=== PATIENT | female | born 1980 | race Caucasian/White ===

== ENCOUNTER → 2019-10-03 09:07 | Outpatient (CLI) | payer OTHER, SELFPAY ==
--- NOTE | 2019-10-03 | DI.MG.S_ITS ---
BILATERAL DIGITAL SCREENING MAMMOGRAM 3D/2D WITH CAD: 10/03/2019 CLINICAL: Baseline exam. Routine screening. Family history of breast cancer. No prior exams were available for comparison. The tissue of both breasts is extremely dense, which lowers the sensitivity of mammography. Current study was also evaluated with a Computer Aided Detection (CAD) system. There is an oval low density mass with an obscured and circumscribed margin in the right breast at 10 o'clock posterior depth. There is an oval high density asymmetry with an indistinct margin in the left breast middle depth superior region seen on the mediolateral oblique view only. No other significant masses or calcifications are seen in either breast. IMPRESSION: INCOMPLETE: NEEDS ADDITIONAL IMAGING EVALUATION The oval low density mass in the right breast at 10 o'clock posterior depth is indeterminate. An ultrasound is recommended. The oval high density asymmetry in the left breast middle depth superior region seen on the mediolateral oblique view only is indeterminate. Mediolateral and spot compression views as well as additional views with possible ultrasound are recommended. This exam was interpreted at Station ID: [id number]. NOTE: For mammograms, a report in lay terms will be sent to the patient. Approximately 15% of breast malignancies will not be visualized mammographically. In the management of a palpable breast mass, a negative mammogram must not discourage biopsy of a clinically suspicious lesion. Electronically Signed By: Amrik mcqueen/henry:10/05/2019 08:56:01 letter sent: Additional Imaging Needed ACR BI-RADS Category 0: Incomplete 3340F
== END ==
PROVIDERS: Family Provider Family Medicine; PCP Family Medicine; Referring Provider Family Medicine; Visit Provider Family Medicine
DX: Z12.31 Encounter for screening mammogram for malignant neoplasm of breast (principal); Z80.3 Family history of malignant neoplasm of breast
CPT/HCPCS: 77063; 77067

== ENCOUNTER → 2019-10-19 09:40 | Outpatient (CLI) | payer OTHER, SELFPAY ==
--- NOTE | 2019-10-19 | DI.US.S_ITS ---
ULTRASOUND OF RIGHT BREAST AND AXILLA: 10/19/2019 CLINICAL: Patient returns today to evaluate a focal asymmetry in the right breast. Comparison is made to exams dated: 10/19/2019 mammogram and 10/03/2019 mammogram - [facility]. Color flow and real-time ultrasound of the right breast axilla were performed. Graff scale images of the real-time examination were reviewed. There is a benign 0.5 cm x 0.5 cm x 0.4 cm oval normal lymph node in the right breast at 11 o'clock posterior depth 7 cm from the nipple. This oval normal lymph node is hypoechoic with fatty hilum. This correlates with mammography findings. Color flow imaging demonstrates that there is vascularity present in the hilum. No significant abnormalities were seen sonographically in the right axilla. IMPRESSION: BENIGN There is no sonographic evidence of malignancy. The 0.5 cm x 0.5 cm x 0.4 cm oval normal lymph node in the right breast is consistent with a lymph node and is benign. A 1 year screening mammogram is recommended. This exam was interpreted at Station ID: [id number]. Electronically Signed By: Leonard Arguello M.D. aty/:10/19/2019 10:46:02 letter sent: Normal Exam Ultrasound BI-RADS: 2 Benign
--- NOTE | 2019-10-19 | DI.MG.S_ITS ---
BILATERAL DIGITAL DIAGNOSTIC MAMMOGRAM 3D/2D WITH ADDITIONAL VIEWS: 10/19/2019 CLINICAL: Additional evaluation requested from prior study. Comparison is made to exam dated: 10/03/2019 [facility]. The tissue of both breasts is extremely dense, which lowers the sensitivity of mammography. There is a 0.6 cm oval low density mass with an obscured and circumscribed margin in the right breast at 10 o'clock posterior depth. This is not significantly changed. The benign irregular asymmetry in the left breast middle depth superior region seen on the mediolateral oblique view only is no longer seen. This is consistent with summation artifact. No other significant masses or calcifications are seen in either breast. IMPRESSION: INCOMPLETE: NEEDS ADDITIONAL IMAGING EVALUATION The previously described mediolateral view only asymmetry in the superior left breast, middle depth disperses with additional views and is consistent with summation artifact. The 0.6 cm oval low density mass in the right breast at 10 o'clock posterior depth is indeterminate. An ultrasound is recommended for further evaluation and is scheduled to immediately follow this study. This exam was interpreted at Station ID: [id number]. NOTE: For mammograms, a report in lay terms will be sent to the patient. Approximately 15% of breast malignancies will not be visualized mammographically. In the management of a palpable breast mass, a negative mammogram must not discourage biopsy of a clinically suspicious lesion. Electronically Signed By: Leonard Arguello M.D. aty/:10/19/2019 10:24:10 ACR BI-RADS Category 0: Incomplete 3340F
== END ==
PROVIDERS: Family Provider Family Medicine; PCP Family Medicine
DX: R92.8 Other abnormal and inconclusive findings on diagnostic imaging of breast (principal)
CPT/HCPCS: 76642; 77066; G0279

== ENCOUNTER → 2020-07-23 08:56 | Outpatient (CLI) | payer OTHER, SELFPAY ==
[2020-07-23 09:16] LABS: COVID19 -Nasal RAPID POSITIVE (Negative)
== END ==
PROVIDERS: Family Provider Family Medicine; PCP Family Medicine; Visit Provider Physician Assistant
DX: U07.1 COVID-19 (principal)
CPT/HCPCS: 87635

== ENCOUNTER → 2020-10-22 09:07 | Outpatient (CLI) | payer OTHER, SELFPAY ==
--- NOTE | 2020-10-22 | DI.MG.S_ITS ---
BILATERAL DIGITAL SCREENING MAMMOGRAM 3D/2D WITH CAD: 10/22/2020 CLINICAL: Routine screening. Family history of breast cancer. Comparison is made to exams dated: 10/19/2019 mammogram and 10/03/2019 mammogram - [facility]. The tissue of both breasts is extremely dense, which lowers the sensitivity of mammography. Current study was also evaluated with a Computer Aided Detection (CAD) system. No significant masses, calcifications, or other findings are seen in either breast. There has been no significant interval change. IMPRESSION: NEGATIVE There is no mammographic evidence of malignancy. A 1 year screening mammogram is recommended. This exam was interpreted at Station ID: [id number]. NOTE: For mammograms, a report in lay terms will be sent to the patient. Approximately 15% of breast malignancies will not be visualized mammographically. In the management of a palpable breast mass, a negative mammogram must not discourage biopsy of a clinically suspicious lesion. Electronically Signed By: Leonard ramas/henry:10/24/2020 07:43:16 letter sent: Normal Exam ACR BI-RADS Category 1: Negative 3341F
== END ==
PROVIDERS: Family Provider Family Medicine; PCP Family Medicine; Referring Provider Family Medicine; Visit Provider Family Medicine
DX: Z12.31 Encounter for screening mammogram for malignant neoplasm of breast (principal); Z80.3 Family history of malignant neoplasm of breast
CPT/HCPCS: 77063; 77067

== ENCOUNTER → 2021-10-26 15:06 | Outpatient (CLI) | payer OTHER, SELFPAY ==
--- NOTE | 2021-10-26 | DI.MG.S_ITS ---
BILATERAL DIGITAL SCREENING MAMMOGRAM 3D/2D WITH CAD: 10/26/2021 CLINICAL: Routine screening. Family history of breast cancer. Comparison is made to exams dated: 10/22/2020 mammogram and 10/03/2019 mammogram - [facility]. The tissue of both breasts is heterogeneously dense. This may lower the sensitivity of mammography. Current study was also evaluated with a Computer Aided Detection (CAD) system. No significant masses, calcifications, or other findings are seen in either breast. There has been no significant interval change. IMPRESSION: NEGATIVE There is no mammographic evidence of malignancy. A 1 year screening mammogram is recommended. This exam was interpreted at Station ID: [id number]. NOTE: For mammograms, a report in lay terms will be sent to the patient. Approximately 15% of breast malignancies will not be visualized mammographically. In the management of a palpable breast mass, a negative mammogram must not discourage biopsy of a clinically suspicious lesion. Electronically Signed By: Luh garcia/henry:10/27/2021 08:20:11 letter sent: Normal Exam ACR BI-RADS Category 1: Negative 3341F
== END ==
PROVIDERS: Family Provider Family Medicine; PCP Family Medicine; Referring Provider Family Medicine; Visit Provider Family Medicine
DX: Z12.31 Encounter for screening mammogram for malignant neoplasm of breast (principal); Z80.3 Family history of malignant neoplasm of breast
CPT/HCPCS: 77063; 77067

== ENCOUNTER → 2021-11-13 16:58 | Outpatient (CLI) | payer OTHER, SELFPAY ==
--- NOTE | 2021-11-13 17:01 | DI.RAD.S_ITS ---
PROCEDURE: XR WRIST LT MIN 3V INDICATIONS: LT WRIST AND HAND PAIN TECHNIQUE: 4 views of the wrist were acquired. COMPARISON: None. FINDINGS: Bones: No fractures or dislocations. No suspicious bony lesions. Scaphoid view: The scaphoid is intact. Soft tissues: No suspicious soft tissue calcifications. IMPRESSION: No acute radiographic findings. No findings to explain wrist pain. Dictated by: Luh Perkins M.D. on 11/14/2021 at 8:19 Approved by: Luh Perkins M.D. on 11/14/2021 at 8:20
--- NOTE | 2021-11-13 17:01 | DI.RAD.S_ITS ---
PROCEDURE: XR HAND LT MIN 3V INDICATIONS: LT WRIST AND HAND PAIN TECHNIQUE: 3 views of the hand(s) acquired. COMPARISON: None. FINDINGS: Bones: No fractures or dislocations. Carpal bones are normally aligned. No suspicious bony lesions. Soft tissues: No suspicious soft tissue calcifications. IMPRESSION: No suspicious bony lesions or acute radiographic abnormalities. Dictated by: Luh Perkins M.D. on 11/14/2021 at 8:20 Approved by: Luh Perkins M.D. on 11/14/2021 at 8:20
== END ==
PROVIDERS: Family Provider Family Medicine; PCP Family Medicine; Referring Provider Family Medicine; Visit Provider Family Medicine
DX: M25.532 Pain in left wrist (principal); M79.642 Pain in left hand
CPT/HCPCS: 73110; 73130

== ENCOUNTER → 2022-05-16 09:52 | Outpatient (CLI) | payer OTHER, SELFPAY ==
--- NOTE | 2022-05-16 09:54 | DI.MG.S_ITS ---
BILATERAL DIGITAL DIAGNOSTIC MAMMOGRAM 3D/2D: 05/16/2022 CLINICAL: Bilateral breast lumps. Comparison is made to exams dated: 10/26/2021 mammogram, 10/22/2020 mammogram, 10/19/2019 ultrasound, and 10/19/2019 mammogram - [facility]. Both breasts are heterogeneously dense, which may obscure small masses (category c / 51-75% glandular tissue). No significant masses, calcifications, or other findings are seen in either breast. Specifically, no finding to correspond to the patient's bilateral palpable abnormalities. Mammograms are otherwise stable. IMPRESSION: INCOMPLETE: NEEDS ADDITIONAL IMAGING EVALUATION There is no abnormality seen in either breast to correspond with the palpable abnormality at 6 o'clock, however, ultrasound is recommended bilaterally. This was performed immediately following this exam. Based on Tyrer-Cuzick model (a risk assessment model), the patient's lifetime risk is 39.6% and her 10 year risk is 6.4%. If a patient has an elevated risk, a more comprehensive evaluation should be considered and/or a referral to a genetic counselor. The [place] [employer], [place] [employer], and NCCN Guidelines advise the consideration of Breast MRI as an adjunct to screening mammography in patients whose Lifetime risk to develop breast cancer is 20% or higher. This exam was interpreted at Station ID: [id number]. NOTE: For mammograms, a report in lay terms will be sent to the patient. Approximately 15% of breast malignancies will not be visualized mammographically. In the management of a palpable breast mass, a negative mammogram must not discourage biopsy of a clinically suspicious lesion. Electronically Signed By: Misty chaudhari/:05/16/2022 10:35:40 ACR BI-RADS Category 0: Incomplete 3340F
--- NOTE | 2022-05-16 09:54 | DI.US.S_ITS ---
ULTRASOUND OF LEFT BREAST: 05/16/2022 CLINICAL: Palpable left breast lump. Comparison is made to exams dated: 05/16/2022 mammogram, 10/26/2021 mammogram, 10/22/2020 mammogram, 10/19/2019 mammogram, and 10/03/2019 mammogram - [facility]. Color flow ultrasound of the left breast was performed. Graff scale images of the real-time examination were reviewed. There is a 0.8 cm x 0.6 cm x 0.6 cm round cyst with a 0.2 cm round mural nodule, likely debris in the left breast at 6 o'clock posterior depth 10 cm from the nipple. THere is amorphous avascular debris along the lateral margin internally. This round cyst is otherwise anechoic with posterior acoustic enhancement. This correlates as palpated. Color flow imaging demonstrates that there is no vascularity present. IMPRESSION: PROBABLY BENIGN The 0.8 cm round cyst with debris in the left breast is consistent with a complicated cyst and is probably benign. A follow-up left ultrasound in 6 months is recommended to demonstrate stability. Findings and recommendations were conveyed to the patient at time of exam. This exam was interpreted at Station ID: [id number]. Electronically Signed By: Misty chaudhari/:05/16/2022 11:22:04 letter sent: Followup Recommended Ultrasound BI-RADS: 3 Probably benign
--- NOTE | 2022-05-16 09:55 | DI.US.S_ITS ---
LIMITED ULTRASOUND OF RIGHT BREAST: 05/16/2022 CLINICAL: Palpable right breast lump. Comparison is made to exams dated: 05/16/2022 mammogram, 10/26/2021 mammogram, 10/22/2020 mammogram, 10/19/2019 ultrasound, 10/19/2019 mammogram, and 10/03/2019 mammogram - [facility]. Color flow ultrasound of the right breast 6 o'clock region was performed. Graff scale images of the real-time examination were reviewed. Fibrocystic tissue is present, including a 0.35 cm round cyst in the superficial tissue corresponding to the palpable abnormality. No other suspicious findings. IMPRESSION: BENIGN Fibrocystic tissue and a tiny benign palpable cyst. There is no sonographic evidence of malignancy. No follow up needed for right breast. Return for left breast ultrasound follow up in 6 months. Findings and recommendations were conveyed to the patient at time of exam. This exam was interpreted at Station ID: [id number]. Electronically Signed By: Misty chaudhari/:05/16/2022 11:24:37 Entry: - 05/17/2022 14:56:16 Ultrasound BI-RADS: 2 Benign
== END ==
PROVIDERS: Family Provider Family Medicine; PCP Family Medicine; Referring Provider Family Medicine; Visit Provider Family Medicine
DX: N60.01 Solitary cyst of right breast (principal); N60.02 Solitary cyst of left breast; Z80.3 Family history of malignant neoplasm of breast
CPT/HCPCS: 76642; 77066; G0279

== ENCOUNTER → 2023-02-01 11:08 | Outpatient (CLI) | payer OTHER, SELFPAY ==
--- NOTE | 2023-02-01 | DI.US.S_ITS ---
LIMITED ULTRASOUND OF LEFT BREAST: 02/01/2023 CLINICAL: 6 month follow up on left breast cyst. Comparison is made to exams dated: 05/16/2022 ultrasound, 05/16/2022 ultrasound, 05/16/2022 mammogram, and 10/26/2021 mammogram - [facility]. Color flow and real-time ultrasound of the left breast 6-7 o'clock region were performed. Graff scale images of the real-time examination were reviewed. There is a 0.5 cm x 0.4 cm x 0.4 cm round complicated cyst in the left breast at 6 o'clock posterior depth 10 cm from the nipple. This round complicated cyst is anechoic with internal echoes and posterior acoustic enhancement. This abnormality is slightly decreased in size and correlates as palpated. Color flow imaging demonstrates that there is no vascularity present. There also is a benign 0.4 cm x 0.4 cm x 0.4 cm simple cyst in the left breast at 7 o'clock posterior depth 10 cm from the nipple. This simple cyst is anechoic. Color flow imaging demonstrates that there is no vascularity present. IMPRESSION: PROBABLY BENIGN The 0.5 cm complicated cyst in the left breast at 6 o'clock posterior depth is slightly decreased in size and is probably benign. The 0.4 cm simple cyst in the left breast at 7 o'clock posterior depth is benign. A follow-up ultrasound in 6 months is recommended to demonstrate stability. Patient will be due for mammogram at that time. Exam findings were conveyed to the patient. Patient is advised to monitor for significant change. This exam was interpreted at Station ID: [id number]. Electronically Signed By: Justin Foley M.D. [facility] [place]02/01/2023 12:29:49 letter sent: Followup Recommended Ultrasound BI-RADS: 3 Probably benign
== END ==
PROVIDERS: Family Provider Family Medicine; PCP Family Medicine; Referring Provider Family Medicine; Visit Provider Family Medicine
DX: R92.8 Other abnormal and inconclusive findings on diagnostic imaging of breast (principal); N60.02 Solitary cyst of left breast
CPT/HCPCS: 76642

== ENCOUNTER → 2024-04-02 12:04 | Outpatient (CLI) | payer OTHER, SELFPAY ==
--- NOTE | 2024-04-02 12:09 | DI.RAD.S_ITS ---
PROCEDURE: XR FOOT RT MIN 3V INDICATIONS: Pain in right foot TECHNIQUE: 3 views of the foot were acquired. COMPARISON: None. FINDINGS: Bones: No fractures or dislocations. No suspicious bony lesions. Soft tissues: No tibiotalar joint effusion. Achilles tendon appears normal. IMPRESSION: No acute bony abnormality. Approved by: Matty Rizzo M.D. on 04/02/2024 at 19:44
== END ==
PROVIDERS: Family Provider Family Medicine; PCP Family Medicine
DX: M79.671 Pain in right foot (principal); R22.41 Localized swelling, mass and lump, right lower limb
CPT/HCPCS: 73630